=== PATIENT | female | born 1985 | race Caucasian/White ===

== ENCOUNTER 2017-06-10 21:53 | Emergency (ER) | payer BC ==
[~2017-06-10 21:53] MED LIST: IBUP-1427 PO
[2017-06-10] MEDS ORDERED: ONDANSETRON INJ 2 MG/ML 2 ML VIAL IV STA (22:36)
[2017-06-10] MEDS ORDERED: LIDOCAINE/EPINEPH/TETRACAINE 1 EA SYR EXT STA (22:36)
[2017-06-10] MEDS ORDERED: LIDOCAINE 1% BUFFERED INJ 5 ML VIAL INFIL ONE (22:45)
[2017-06-10] MEDS ORDERED: SODIUM CHLORIDE 0.9% 1000ML 1,000 ML IV ONE (22:45)
[2017-06-10 22:58] LABS: BASO % 0.5 %; BASO ABS # 0.03 K/uL (0-0.2); EOS % 2.2 %; EOS ABS # 0.13 K/uL (0-0.5); IG# 0.01 K/uL (0.00-0.02); LYMPH % 40.9 %; LYMPH ABS # 2.42 K/uL (1.2-3.4); MEAN CELL VOLUME 84.6 fL (80-100); MEAN CORPUSCULAR HEMOGLOBIN 30.4 pg (25-34); MEAN CORPUSCULAR HGB CONC 35.9 g/dl (32-36); MEAN PLATELET VOLUME 9.2 fL (7.4-10.4); MONO % 4.7 %; MONO ABS # 0.28 K/uL (0.11-0.59); NEUT % 51.5 %; NEUT ABS # 3.05 K/uL (1.4-6.5); PLATELET COUNT 239 K/uL (130-400); RED CELL DISTRIBUTION WIDTH CV 11.9 % (11.5-14.5); RED CELL DISTRIBUTION WIDTH SD 36.5 fL (36.4-46.3); WHITE BLOOD COUNT 5.92 K/uL (4.8-10.8)
[2017-06-10 23:08] LABS: PTT PATIENT 24.5 SECONDS (21.0-31.0)
[2017-06-10 23:15] LABS: ALBUMIN 4.1 gm/dl (3.4-5.0); BLOOD UREA NITROGEN 15 mg/dl (7-18); CALCIUM 8.6 mg/dl (8.5-10.1); CARBON DIOXIDE 23 mmol/L (21-32); CREATININE 0.79 mg/dl (0.60-1.20); GLUCOSE 111 mg/dl (70-99); POTASSIUM 3.3 mmol/L (3.5-5.1); SODIUM 141 mmol/L (136-145)
[2017-06-10 23:23] LABS: ALKALINE PHOSPHATASE 53 U/L (45-117); ALT/SGPT 23 U/L (12-78); AST/SGOT 22 U/L (15-37); TOTAL PROTEIN 7.4 gm/dl (6.4-8.2)
[2017-06-11] MEDS ORDERED: CEPH500C PO (02:10)
[2017-06-11 02:20] VITALS: BP 95/47; PULSE 85; O2SAT 97
--- NOTE | 2017-06-11 03:40 | EMERGENCY ROOM VISIT NOTE ---
History First contact with patient: 22:30 Chief Complaint: LACERATION/CUT (SUT/DERMABOND) Stated Complaint: FELL, HIT HEAD, LACERATION TO FOREHEAD Nursing Triage Summary: patient has laceration to forehead. unknown of how patient fell and hit head. Denies loss of consciousness. History of Present Illness The patient is a 32 year old female who presents to the Emergency Room with complaints of laceration to her forehead that occurred within the past 1 hour. The patient is accompanied by her who provides most of the history. The patient has been drinking alcohol tonight, and is believed to have fallen in the kitchen, striking her head. There is concern for possible loss of consciousness. The patient is actively vomiting at this time. She is complaining of nausea and right hand pain. Her tetanus is reportedly up-to- date. She is without chest or abdominal pain. No numbness or paresthesias. History is somewhat difficult to obtain as the patient is intoxicated and vomiting. Review of Systems Review of systems was attempted but difficult to obtain due to the patient's alcohol intoxication status and vomiting on arrival Past Medical/Surgical History No chronic medical disease Family History Patient reports no known family medical history. Social History Smoking Status: Unknown if Ever Smoked Alcohol Use: heavy Marital Status: Housing Status: lives with family Occupation Status: employed Current/Historical Medications Scheduled Cephalexin Monohydrate (Keflex), 500 MG PO TID Scheduled PRN Ibuprofen Tab (Motrin), 600 MG PO Q4H PRN for Pain Physical Exam Vital Signs Date Time Temp Pulse Resp B/P (MAP) Pulse Ox O2 Delivery O2 Flow Rate FiO2 06/11/17 02:20 85 20 95/47 97 Room Air 06/11/17 00:18 95 20 117/61 98 06/10/17 22:02 89 18 114/80 96 Room Air Physical Exam VITALS: Vitals are noted on the nurse's note and reviewed by myself. Vital signs stable. GENERAL: Well-developed, well-nourished, white female who appears obviously intoxicated. She smells of alcohol. She is vomiting upon my arrival to the room. She does follow simple instructions HEAD: There is a vertical 4.5 cm laceration just to the right of midline on the forehead. This does gape and will require repair. EARS: External ear normal. External auditory canals clear, tympanic membranes pearly negron without erythema or effusion bilaterally. EYES: Pupils equal round and reactive to light and accommodation. Conjunctivae without injection, sclerae without icterus. Extraocular movements intact. NOSE: Patent, turbinates without inflammation or discharge. MOUTH: Mucous membranes moist. Tonsils are not enlarged. Pharynx without erythema, blood, or exudate. Uvula midline. Airway patent. NECK: Supple without nuchal rigidity. No lymphadenopathy. No thyromegaly. Cervical spine is nontender. HEART: Regular rate and rhythm without murmurs gallops or rubs. LUNGS: Clear to auscultation bilaterally without wheezes, rales or rhonchi. No retractions or accessory muscle use. ABDOMEN: Positive normal bowel sounds x 4. Soft, nontender, without masses or organomegaly. No guarding or rebound tenderness. EXTREMITY: Positive tenderness of the right hand over the third and fourth metacarpals. No other musculoskeletal injury appreciated. Medical Decision & Procedures ER Provider Diagnostic Interpretation: Preliminary Findings Only See Final Report For Complete Findings CT HEAD: No intracranial hemorrhage or skull fracture. Soft tissue injury in the forehead. Small low attenuation focus in the right frontal lobe. Laboratory Results 06/10/17 22:46 Red Blood Count 4.61, Mean Corpuscular Volume 84.6, Mean Corpuscular Hemoglobin 30.4, Mean Corpuscular Hemoglobin Concent 35.9, Mean Platelet Volume 9.2, Neutrophils (%) (Auto) 51.5, Lymphocytes (%) (Auto) 40.9, Monocytes (%) (Auto) 4.7, Eosinophils (%) (Auto) 2.2, Basophils (%) (Auto) 0.5, Neutrophils # (Auto) 3.05, Lymphocytes # (Auto) 2.42, Monocytes # (Auto) 0.28, Eosinophils # (Auto) 0.13, Basophils # (Auto) 0.03 06/10/17 22:46 Test 06/10/17 22:46 White Blood Count 5.92 K/uL (4.8-10.8) Red Blood Count 4.61 M/uL (4.2-5.4) Hemoglobin 14.0 g/dL (12.0-16.0) Hematocrit 39.0 % (37-47) Mean Corpuscular Volume 84.6 fL (80-100) Mean Corpuscular Hemoglobin 30.4 pg (25-34) Mean Corpuscular Hemoglobin Concent 35.9 g/dl (32-36) Platelet Count 239 K/uL (130-400) Mean Platelet Volume 9.2 fL (7.4-10.4) Neutrophils (%) (Auto) 51.5 % Lymphocytes (%) (Auto) 40.9 % Monocytes (%) (Auto) 4.7 % Eosinophils (%) (Auto) 2.2 % Basophils (%) (Auto) 0.5 % Neutrophils # (Auto) 3.05 K/uL (1.4-6.5) Lymphocytes # (Auto) 2.42 K/uL (1.2-3.4) Monocytes # (Auto) 0.28 K/uL (0.11-0.59) Eosinophils # (Auto) 0.13 K/uL (0-0.5) Basophils # (Auto) 0.03 K/uL (0-0.2) RDW Standard Deviation 36.5 fL (36.4-46.3) RDW Coefficient of Variation 11.9 % (11.5-14.5) Immature Granulocyte % (Auto) 0.2 % Immature Granulocyte # (Auto) 0.01 K/uL (0.00-0.02) Prothrombin Time 10.9 SECONDS (9.0-12.0) Prothromb Time International Ratio 1.0 (0.9-1.1) Activated Partial Thromboplast Time 24.5 SECONDS (21.0-31.0) Partial Thromboplastin Ratio 0.9 Anion Gap 7.0 mmol/L (3-11) Estimated GFR () 114.8 Estimated GFR (Non- 99.1 BUN/Creatinine Ratio 18.4 (10-20) Calcium Level 8.6 mg/dl (8.5-10.1) Total Bilirubin 0.8 mg/dl (0.2-1) Aspartate Amino Transf (AST/SGOT) 22 U/L (15-37) Alanine Aminotransferase (ALT/SGPT) 23 U/L (12-78) Alkaline Phosphatase 53 U/L (45-117) Total Protein 7.4 gm/dl (6.4-8.2) Albumin 4.1 gm/dl (3.4-5.0) Globulin 3.3 gm/dl (2.5-4.0) Albumin/Globulin Ratio 1.2 (0.9-2) Ethyl Alcohol mg/dL 327.0 mg/dl (0-3) Medications Administered Medications (Trade) Dose Ordered Sig/Feliberto Route Start Time Stop Time Status Last Admin Dose Admin Sodium Chloride 1,000 ml @ 999 mls/hr Q1H1M ONCE IV 06/10/17 22:45 06/10/17 23:45 DC 06/10/17 22:57 999 MLS/HR Ondansetron HCl (Zofran Inj) 4 mg NOW STAT IV 06/10/17 22:36 06/10/17 22:38 DC 06/10/17 22:57 4 MG Tetracaine/ Epinephrine/ Lidocaine (L.e.t. Gel 4%/ 1:100/0.5%) 1 ea NOW STAT EXT 06/10/17 22:36 06/10/17 22:38 DC 06/10/17 22:57 1 EA Procedure Laceration repair. Patient elects to have their laceration repaired. Verbal consent was obtained to perform the procedure. There is an abundance of materials available for the procedure. Patient is not allergic to latex. Using sterile technique the wound was cleaned with Betadine. The area was sterilely draped. LET gel and 5 ml of 1% buffered lidocaine was used to anesthetize the forehead laceration. Once the patient was anesthetized, the wound was copiously irrigated under pressure with sterile saline. The wound was explored and there were no deep structures injured such as tendons or significant blood vessels. A small amount of skull was appreciated on the medial aspect the patient will be started on Keflex. The laceration was repaired using 6 simple interrupted 5-0 nylon sutures with the wound edges being well approximated. Hemostasis was achieved. The area was cleaned with sterile saline and dressed with bacitracin ointment and bandage. Patient tolerated the procedure well without complications. Blood loss was negligible. ED Course Physical exam and history were performed. Nursing notes, EMR, and Medication List were personally reviewed. Patient appears to have been drinking alcohol tonight and suffered a fall. Her is with her, and he provides much of the history as the patient is intoxicated. Based on her injuries and where she was found we believe that she fell in the kitchen and may have struck a cabinet handle causing the injury to her forehead. She may have attempted to brace herself with her right hand as she is complaining of some right hand pain on examination. IV access was established and labs were obtained. The patient was hydrated with normal saline and given Zofran because she is vomiting. CT scan of the head and x-ray of the hand were performed. The patient's blood work is as above and was reviewed. She does not have a significantly elevated white blood cell count, gross anemia or significant electrolyte imbalance. Her alcohol is notably elevated at 327. X-ray was reviewed by myself and does not appear to show acute fracture with radiology read pending at this time. CT scan was read by [facility] and does not show acute fracture or bleed. The patient's laceration was repaired as above. The patient remained in stable condition over the course of several hours here in the emergency department. She slowly sobered up, and was able to walk to the bathroom and urinate. She did not have any worsening of her symptoms, nor did she have recurrent emesis. Overall the patient is felt to be well for discharge home under the care of her . I did offer them drug and alcohol rehabilitation services, but they declined. The patient was given wound care instructions and a prescription for Keflex. They are to follow with the family doctor in the next few days and were otherwise invited to the ER with any new, worsening, or concerning symptoms. The chart was completed utilizing [employer] Voice Recognition Software. Grammatical errors, random word insertions, pronoun errors, and incomplete sentences are an occasional consequence of this system due to software limitations, ambient noise, and hardware issues. Any formal questions or concerns about the content, text, or information contained within the body of this dictation should be directly addressed to the provider for clarification. . Medical Decision Differential diagnosis: Etiologies such as laceration, alcohol intoxication, concussion, contusion, fracture, subdural hematoma, epidural hematoma, intraparenchymal hemorrhage, as well as other traumatic pathologies were entertained. Impression Primary Impression: Fall Additional Impressions: Alcohol use with intoxication Head injury Laceration of forehead Departure Information Dispostion Home / Self-Care Condition GOOD Prescriptions Cephalexin Monohydrate (Keflex) 500 Mg Cap 500 MG PO TID for 5 Days, #15 CAP Prov: Leonardo Cramer PA-C 06/11/17 Forms HOME CARE DOCUMENTATION FORM, IMPORTANT VISIT INFORMATION Patient Instructions [facility], ED Laceration All, ED Scar Tips to Minimize Additional Instructions You were seen and evaluated today on an emergency basis only. This is not a substitute for, or an effort to provide, complete comprehensive medical care. It is not possible to recognize and treat all injuries or illnesses in a single emergency department visit. For this reason it is recommended that you followup with your primary care physician with any ongoing or persisting symptoms. For baseline pain relief you may alternate ibuprofen and acetaminophen every 4 hours for pain control. Take 600 mg ibuprofen (Advil) and then 4 hours later take 1000 mg acetaminophen (Tylenol). Do not take more than 3000 mg acetaminophen in a single day. Keep wound clean and dry. Do not allow any crusting or dried blood to accumulate on sutures. If this occurs, use a mild soap/water on a Q-tip to clean the wound. Do not use Peroxide to clean the wound as this can delay healing Use an antibiotic ointment like Bacitracin for 3-4 days, then let wound dry. You may bathe and shower as normal, but DO NOT SOAK the wound. Suture removal in about 5-7 days with your Family Doctor or in the ER. Return sooner for any signs of infection, increasing redness, swelling, or drainage. Cephalexin(Keflex) 500mg: Take one pill 3 times daily for 5 days to prevent possible infection. All antibiotics can cause diarrhea. If this occurs and you feel worse or it does not resolve in 1-2 days follow up with your doctor or return to the Emergency Department as this could be signs of serious underlying problems. Any medication can cause an allergic reaction, stop the pills immediately and return to the ER for rash, hives, breathing difficulties, or swelling. You are welcome to return to the emergency department anytime with new, worsening, or concerning symptoms. Problem Qualifiers
--- NOTE | 2017-06-11 06:36 | DIAGNOSTIC IMAGING REPORT ---
HEAD WITHOUT CONTRAST (CT) CLINICAL HISTORY: 32 years-old Female with Etoh. Head injury. Forehead lac. . Acute head injury with foreign laceration TECHNIQUE: Multiple axial CT images of the head were obtained without contrast. A dose lowering technique was utilized adhering to the principles of ALARA. CT DOSE: 537.48 mGy.cm COMPARISON: None. FINDINGS: No acute intracranial hemorrhage, midline shift, intracranial mass, hydrocephalus, territorial ischemia or abnormal extra-axial collection. Indeterminate 1.5 cm low attenuating focus of the right frontal lobe subcortical white matter near the vertex, image 21 series 2. The calvarium is intact. Mild mucosal thickening of the ethmoid air cells. Mastoid air cells and middle ear cavities are clear. Mild soft tissue swelling with subcutaneous emphysema of the right frontal soft tissues compatible with laceration. No opaque foreign body. The orbits are unremarkable. IMPRESSION: 1. Mild soft tissue swelling with small laceration of the right frontal soft tissues. No opaque foreign body. 2. No acute intracranial abnormality or calvarial fracture. 3. 1.5 cm low attenuating focus of the right frontal lobe subcortical white matter may reflect area of remote insult. The above report was generated using voice recognition software. It may contain grammatical, syntax or spelling errors. Electronically signed by: Gen Amin M.D. 06/11/2017 6:35 AM Dictated Date/Time: 06/11/2017 6:33 AM
--- NOTE | 2017-06-11 06:41 | DIAGNOSTIC IMAGING REPORT ---
R HAND MIN 3 VIEWS ROUTINE HISTORY: 32 years-old Female right hand injury acute right hand pain status post fall COMPARISON: None available TECHNIQUE: 3 views of the right hand FINDINGS: Oblique positioning of the lateral view. There is no acute fracture, dislocation or significant degenerative changes. No opaque foreign body or significant soft tissue swelling. IMPRESSION: No acute fracture. The above report was generated using voice recognition software. It may contain grammatical, syntax or spelling errors. Electronically signed by: Gen Amin M.D. 06/11/2017 6:40 AM Dictated Date/Time: 06/11/2017 6:38 AM
== END 2017-06-11 02:26 | disposition home or self-care (01) ==
LOC: C.EDB 21:54 → C.EDA 06-11 02:26
DX: S01.81XA Laceration without foreign body of other part of head, initial encounter (principal); W19.XXXA Unspecified fall, initial encounter; F10.129 Alcohol abuse with intoxication, unspecified; Y90.8 Blood alcohol level of 240 mg/100 ml or more; M79.641 Pain in right hand